=== PATIENT | female | born 1995 | race Caucasian/White ===

== ENCOUNTER 2018-08-20 02:41 | Emergency (ER) | payer BC, SELFPAY ==
[2018-08-20 02:41] VITALS: BP 137/100; PULSE 103; RESP 20; TEMP 36.8; O2SAT 100; BMI 32.4
--- NOTE | 2018-08-20 02:42 | ED.RN ---
CALLED FOR EKG PER RN REQUEST, NO OLD EKGS IN MUSE
--- NOTE | 2018-08-20 03:08 | EKG12_ITS ---
Test Reason : CP Blood Pressure : / mmHG Vent. Rate : 119 BPM Atrial Rate : 119 BPM P-R Int : 130 ms QRS Dur : 076 ms QT Int : 312 ms P-R-T Axes : 065 048 033 degrees QTc Int : 438 ms Sinus tachycardia Otherwise normal ECG Confirmed by TOY RHOADES, VICTORINO ([id number]), publications editor AB ESPITIA ([id number]) on 08/24/2018 11:38:24 AM Referred By: ROCAEL Confirmed By:VICTORINO YEAGER MD
[2018-08-20 03:18] LABS: Absolute Lymphocyte Count 3.77 X10^3/ul (0.83-4.51); Basophil# 0.02 X10^3/uL; Basophil% 0.1 % (0-1); Eosinophil# 0.05 X10^3/uL; Eosinophils% 0.4 % (0-5); Hematocrit 42.1 % (37-47); Hemoglobin 14.1 g/dl (12.0-15.0); Lymphocyte # 3.77 X10^3/ul (4.0); Lymphocyte % 27.8 % (19-41); Mean Corp Hgb Conc 33.5 g/gl (32-36); Mean Corpuscular Volume 83.7 fL (81-99); Mean Platelet Vol. 10.9 fl (6.2-12.0); Monocyte# 0.74 X10^3/uL; Monocyte% 5.4 % (0-10); Neutrophil # 8.98 X10^3/uL (2.7-7.7); Neutrophil % 66.2 % (47-70); Platelet Count 324 K/mm3 (150-450); RBC Distribution Width CV 14.2 % (11.6-14.6); RBC Distribution Width SD 43.2 fl (35.1-43.9); Red Blood Count 5.03 M/mm3 (4.2-5.4); White Blood Count 13.6 K/mm3 (4.4-11.0)
--- NOTE | 2018-08-20 03:20 | RAD_ITS ---
STUDY: X-RAY CHEST REASON FOR EXAM: Female, 23 years old. Chest pain and POTS syndrome. TECHNIQUE: PA and lateral views of the chest. COMPARISON: Prior comparison studies are not available for review at this time. FINDINGS: Cardiac monitoring leads are present. Incidental note is made of bilateral nipple piercings. The lungs are clear and expanded. There is no demonstrated pleural abnormality. Normal size heart. Normal mediastinum and rtipp. Normal visualized pulmonary arteries. Normal visualized aortic arch and descending thoracic aorta. Normal visualized thoracic spine. Normal visualized ribs, clavicles, and shoulders. There is no demonstrated abnormality of the visualized soft tissue structures of the upper abdomen. RAD/Chest PA and Lateral IMPRESSION: No radiographic evidence of acute cardiopulmonary disease. Electronically Signed: Ira Guardado MD at 3:43 EST , Service support ,
[2018-08-20 03:22] LABS: POSITIVE COUNT NO; POSITIVE DIFFERENTIAL NO; POSITIVE MORPHOLOGY NO
[2018-08-20 03:29] LABS: D-Dimer Quantitative (DVT/PE) 0.36 FEU/ug/m (0.27-0.49)
[2018-08-20 03:31] LABS: Anion Gap 12 (5-15); BUN 14 mg/dL (7-18); BUN/Creat Ratio 17.5 RATIO (10-20); Calcium,Total 9.2 mg/dL (8.5-10.1); Chloride 104 mmol/L (98-107); EST Glomerular Filtration Rate 94 mL/min (>60); Est Glom Filt Rate - Afr Amer 114 mL/min (>60); Estimated Creatinine Clearance 106.36 ml/min; Glucose 115 mg/dL (74-106); Potassium 3.7 mmol/L (3.5-5.1); Sodium Level 139 mmol/L (136-145)
[2018-08-20 03:45] VITALS: BP 125/83; PULSE 99; RESP 16; O2SAT 99
[2018-08-20] MEDS: proCHLORPERazine 10 MG/2 ML Vial IV (03:56)
[2018-08-20] MEDS: DiphenhydrAMINE 50 MG/ML Syringe 25 MG IV (03:58)
[2018-08-20 04:01] VITALS: BP 113/80; PULSE 102; RESP 20; O2SAT 99
--- NOTE | 2018-08-20 04:48 | ED.DCSUM_ITS ---
- ER Visit Summary Date of Service: 08/20/18 Chief Complaint: Chest pain History of Present Illness: The patient is a 23 F who presents with chest pain. It began 4 hours ago with light activity. She described it as sharp in the left upper chest. It was 9 out of 10 but currently rates it as 8 out of 10. No exacerbating or relieving factors. She does complain of some associated lightheadedness. She has had extensive prior similar episodes over the last 4 years and has undergone extensive outpatient workup. She was diagnosed with POTS syndrome. Recent travel or surgery no prior DVT or pulmonary embolism. No other medical history. She also complains of left-sided headache. No head trauma no light sensitivity no vomiting. Physical Examination: Afebrile heart rate 103 vitals otherwise unremarkable Moist mucous membranes Heart regular rhythm tachycardia Lungs are clear without rales rhonchi wheezes Abdomen soft nontender 2+ radial pulses extremities nontender without edema Alert Test Results: EKG shows sinus rhythm at a rate of 119. Labs notable for white blood cell count 13.6 otherwise normal. Troponin and d-dimer negative. Chest x-ray shows no acute disease. Emergency Department Course and Treatment: She was initially treated with IV fluids and Toradol. Her chest pain is improved on reevaluation however she continues to complain of a headache. She was given Compazine and Benadryl. On reevaluation she is resting comfortably and her symptoms have resolved. She was advised to follow-up as an outpatient. She understands to return for new or worsening symptoms. She was discharged. Treatment Plan: [] Disposition: Discharge Impression: Chest pain Headache This note was generated with [employer] dictation software. It may contain incorrect words, spelling, and punctuation that were not noted in review of the chart prior to signing ED Disposition - Plan for ED Patient: Chief Complaint: Chest Pain Referrals: [facility] [address] Doctor,Out of [Primary Care Provider] -
--- NOTE | 2018-08-20 04:48 | ED.DEP ---
ED Disposition - Plan for ED Patient: Chief Complaint: Chest Pain Instructions: ED Chest Pain NonCardiac, ED Cephalgia Unspecified Referrals: [facility],Out of [Primary Care Provider] -
[2018-08-20 04:51] VITALS: BP 123/82; PULSE 96; RESP 20; O2SAT 96
== END 2018-08-20 04:56 | disposition home or self-care (01) ==
LOC: ED 03:31
PROVIDERS: Emergency Provider Emergency Medicine
DX: R07.9 Chest pain, unspecified (principal); R51 Headache
CPT/HCPCS: 71046; 80048; 84484; 85025; 85379; 93005; 96374; 96375; 99285; A4216